=== PATIENT | female | born 1940 | race Caucasian/White ===

== ENCOUNTER 2017-06-20 16:45 | Inpatient (IN) | payer MEDICAID ==
[~2017-06-20] VITALS: Ht 157.5 cm; Wt 59.4 kg
[2017-06-20 17:40] LABS: BASOPHIL % 0.7 % (0-2)
[2017-06-20 17:44] LABS: PLATELET COUNT 122 x10^3mcL (130-400); RED CELL DISTRIBUTION WIDTH 14.6 % (11.5-14.5)
[2017-06-20 17:51] LABS: ALKALINE PHOSPHATASE 171 U/L (46-116); ALT/SGPT 15 U/L (14-59); AST/SGOT 20 U/L (15-37); BILIRUBIN TOTAL 0.29 mg/dL (0.20-1.00); CALCIUM 8.7 mg/dL (8.5-10.1); CARBON DIOXIDE 25.9 mmol/L (21-32); CHLORIDE SERUM 99 mmol/L (98-107); GLUCOSE SERUM 219 mg/dL (74-106); SODIUM SERUM 134 mmol/L (136-145); TOTAL PROTEIN, SERUM 7.4 g/dL (6.4-8.2)
[2017-06-20 17:55] LABS: POTASSIUM SERUM 5.6 mmol/L (3.5-5.1)
[2017-06-20] MEDS ORDERED: HYDRALAZINE HCL25 MG PO (18:40)
[2017-06-20] MEDS ORDERED: TOPROL XL100 MG PO (18:41)
[2017-06-20] MEDS ORDERED: PROMETHAZINE V118 M1 PO (18:41)
[2017-06-20] MEDS ORDERED: GLUCOPHAGE XR500 MG PO (18:41)
[2017-06-20 20:14] VITALS: BP 179/57
[2017-06-20] MEDS ORDERED: GOOD SENSE OMEP20 MG PO (20:24)
[2017-06-20 21:28] LABS: MAGNESIUM 2.5 mg/dL (1.8-2.4); PHOSPHOROUS 3.1 mg/dL (2.5-4.9)
[2017-06-20 21:36] LABS: T3 TOTAL 0.59 ng/mL
[2017-06-20 21:38] LABS: FREE T4 0.84 ng/dL (0.76-1.46); FREE THYROXINE INDEX 1.9 ug/dL (1.4-4.5); T4(THYROXINE) 5.1 ug/dL (4.7-13.3)
[2017-06-20] MEDS ORDERED: METOPROLOL TAR100 MG PO (21:39)
[2017-06-20 21:59] VITALS: BP 131/88
[2017-06-20 22:42] LABS: CALCIUM 8.3 mg/dL (8.5-10.1); CARBON DIOXIDE 29.4 mmol/L (21-32); CHLORIDE SERUM 102 mmol/L (98-107); GLUCOSE SERUM 129 mg/dL (74-106); POTASSIUM SERUM 4.7 mmol/L (3.5-5.1); SODIUM SERUM 138 mmol/L (136-145)
[2017-06-20 23:02] LABS: CREATININE SERUM 6.3 mg/dL (0.6-1.0)
[2017-06-21 05:16] LABS: BASOPHIL % 0.1 % (0-2)
[2017-06-21 05:17] LABS: PLATELET COUNT 120 x10^3mcL (130-400); RED CELL DISTRIBUTION WIDTH 14.9 % (11.5-14.5)
[2017-06-21 05:30] VITALS: BP 165/55
[2017-06-21 05:36] LABS: CALCIUM 8.7 mg/dL (8.5-10.1); CARBON DIOXIDE 27.4 mmol/L (21-32); CHLORIDE SERUM 100 mmol/L (98-107); GLUCOSE SERUM 300 mg/dL (74-106); MAGNESIUM 2.4 mg/dL (1.8-2.4); PHOSPHOROUS 4.4 mg/dL (2.5-4.9); POTASSIUM SERUM 4.7 mmol/L (3.5-5.1); SODIUM SERUM 138 mmol/L (136-145)
[2017-06-21 05:41] LABS: CREATININE SERUM 6.6 mg/dL (0.6-1.0)
[2017-06-21 10:00] VITALS: BP 114/60
[2017-06-21 14:20] VITALS: BP 112/64
[2017-06-21 21:50] VITALS: BP 111/42
[2017-06-22 05:29] VITALS: BP 159/60
[2017-06-22 07:03] LABS: CALCIUM 8.4 mg/dL (8.5-10.1); CARBON DIOXIDE 26.3 mmol/L (21-32); CHLORIDE SERUM 99 mmol/L (98-107); GLUCOSE SERUM 154 mg/dL (74-106); POTASSIUM SERUM 4.1 mmol/L (3.5-5.1); SODIUM SERUM 139 mmol/L (136-145); URIC ACID 3.3 mg/dL (2.6-6.0)
[2017-06-22 07:25] LABS: CREATININE SERUM 4.2 mg/dL (0.6-1.0)
[2017-06-22 14:37] VITALS: BP 144/51
[2017-06-22 16:07] VITALS: BP 86/58
[2017-06-22 16:47] VITALS: BP 122/54
[2017-06-22 16:49] VITALS: BP 122/54
== END 2017-06-22 17:19 | disposition home or self-care (01) | DRG 140 ==
LOC: ED 16:45 → DU 18:41
PROVIDERS: Emergency Medicine; Family Medicine; ADMIT Family Medicine
DX: J44.1 Chronic obstructive pulmonary disease with (acute) exacerbation (principal); N17.0 Acute kidney failure with tubular necrosis; E44.0 Moderate protein-calorie malnutrition; I12.0 Hypertensive chronic kidney disease with stage 5 chronic kidney disease or end stage renal disease; N18.6 End stage renal disease; D69.59 Other secondary thrombocytopenia; E78.5 Hyperlipidemia, unspecified; E11.65 Type 2 diabetes mellitus with hyperglycemia; D63.1 Anemia in chronic kidney disease; E11.51 Type 2 diabetes mellitus with diabetic peripheral angiopathy without gangrene; E11.21 Type 2 diabetes mellitus with diabetic nephropathy; E87.1 Hypo-osmolality and hyponatremia; E87.5 Hyperkalemia; E83.41 Hypermagnesemia; D64.9 Anemia, unspecified; Z99.2 Dependence on renal dialysis; Z79.4 Long term (current) use of insulin; Z89.411 Acquired absence of right great toe; Z79.84 Long term (current) use of oral hypoglycemic drugs
CPT/HCPCS: 36600; 82962; 83880; 84439; 94150; J1815; J2543; J2765; J2920; J2930; J3490; J7030; J7050; J7613; J7620; J7644; Q0092

== ENCOUNTER 2017-06-29 21:48 | Inpatient (IN) | payer MEDICAID ==
[~2017-06-29] VITALS: Ht 162.6 cm; Wt 63.5 kg
[~2017-06-29 21:48] MED LIST: GLUCOPHAGE XR500 MG PO; GOOD SENSE OMEP20 MG PO; HYDRALAZINE HCL25 MG PO; METOPROLOL TAR100 MG PO; PROMETHAZINE V118 M1 PO; TOPROL XL100 MG PO
[2017-06-29 23:16] LABS: ALKALINE PHOSPHATASE 103 U/L (46-116); ALT/SGPT 28 U/L (14-59); AST/SGOT 32 U/L (15-37); BILIRUBIN TOTAL 0.4 mg/dL (0.20-1.00); CALCIUM 8.2 mg/dL (8.5-10.1); CARBON DIOXIDE 20.7 mmol/L (21-32); CHLORIDE SERUM 102 mmol/L (98-107); GLUCOSE SERUM 156 mg/dL (74-106); POTASSIUM SERUM 4.1 mmol/L (3.5-5.1); SODIUM SERUM 137 mmol/L (136-145); TOTAL PROTEIN, SERUM 6.9 g/dL (6.4-8.2)
[2017-06-29 23:17] LABS: ALBUMIN 2.9 g/dL (3.4-5.0); CHOLESTEROL 116 mg/dL (<200)
[2017-06-29 23:18] LABS: CREATININE SERUM 5.8 mg/dL (0.6-1.0)
[2017-06-29 23:35] LABS: BASOPHIL % 0.5 % (0-2); PLATELET COUNT 164 x10^3mcL (130-400)
[2017-06-29 23:36] LABS: RED CELL DISTRIBUTION WIDTH 15.3 % (11.5-14.5)
[2017-06-30] VITALS (7 sets, daily range): BP systolic 128–148; BP diastolic 46–86; Ht 162.6 cm; Wt 63.5 kg
[2017-06-30 02:22] LABS: MAGNESIUM 2.3 mg/dL (1.8-2.4); PHOSPHOROUS 3.6 mg/dL (2.5-4.9)
[2017-07-01 05:50] VITALS: BP 159/72
[2017-07-01 06:35] LABS: BASOPHIL % 0.6 % (0-2); PLATELET COUNT 148 x10^3mcL (130-400)
[2017-07-01 06:58] LABS: CALCIUM 8.3 mg/dL (8.5-10.1); CHLORIDE SERUM 99 mmol/L (98-107); GLUCOSE SERUM 129 mg/dL (74-106); POTASSIUM SERUM 3.4 mmol/L (3.5-5.1); SODIUM SERUM 137 mmol/L (136-145)
[2017-07-01 08:04] LABS: CREATININE SERUM 4.3 mg/dL (0.6-1.0)
[2017-07-01 13:50] VITALS: BP 118/98
[2017-07-01 17:51] VITALS: BP 154/45
[2017-07-01 21:20] VITALS: BP 140/38
[2017-07-02 05:30] VITALS: BP 129/39
[2017-07-02] MEDS ORDERED: ZES5 PO (05:35)
[2017-07-02] MEDS ORDERED: ECO81 PO (05:35)
[2017-07-02] MEDS ORDERED: LIPI10 PO (05:35)
[2017-07-02] MEDS ORDERED: LOP50 PO (05:35)
[2017-07-02] MEDS ORDERED: APR10 PO (05:35)
[2017-07-02 06:12] LABS: CARBON DIOXIDE 28.7 mmol/L (21-32); CHLORIDE SERUM 100 mmol/L (98-107); GLUCOSE SERUM 130 mg/dL (74-106); POTASSIUM SERUM 3.8 mmol/L (3.5-5.1); SODIUM SERUM 138 mmol/L (136-145)
[2017-07-02 06:19] LABS: CREATININE SERUM 6.4 mg/dL (0.6-1.0)
== END 2017-07-02 09:00 | disposition home or self-care (01) | DRG 192 ==
LOC: ED 21:48 → DU 06-30 00:22
PROVIDERS: Internal Medicine Interventional Cardiology; Specialist; ADMIT Family Medicine
PROC: B2151ZZ Fluoroscopy of Left Heart using Low Osmolar Contrast (ICD-10-PCS; 2017-07-01)
PROC: B2111ZZ Fluoroscopy of Multiple Coronary Arteries using Low Osmolar Contrast (ICD-10-PCS; 2017-07-01)
PROC: 3E073KZ Introduction of Other Diagnostic Substance into Coronary Artery, Percutaneous Approach (ICD-10-PCS; 2017-07-01)
PROC: 4A023N7 Measurement of Cardiac Sampling and Pressure, Left Heart, Percutaneous Approach (ICD-10-PCS; principal; 2017-07-01 09:30)
DX: M94.0 Chondrocostal junction syndrome [Tietze] (principal); N17.0 Acute kidney failure with tubular necrosis; I50.43 Acute on chronic combined systolic (congestive) and diastolic (congestive) heart failure; E44.0 Moderate protein-calorie malnutrition; I13.2 Hypertensive heart and chronic kidney disease with heart failure and with stage 5 chronic kidney disease, or end stage renal disease; N18.6 End stage renal disease; E11.51 Type 2 diabetes mellitus with diabetic peripheral angiopathy without gangrene; E11.65 Type 2 diabetes mellitus with hyperglycemia; R91.1 Solitary pulmonary nodule; I25.10 Atherosclerotic heart disease of native coronary artery without angina pectoris; J44.9 Chronic obstructive pulmonary disease, unspecified; E83.51 Hypocalcemia; D63.1 Anemia in chronic kidney disease; Z99.2 Dependence on renal dialysis; Z89.411 Acquired absence of right great toe; Z68.24 Body mass index [BMI] 24.0-24.9, adult; Z79.84 Long term (current) use of oral hypoglycemic drugs
CPT/HCPCS: CLHCL; 82962; 83880; 94150; A4719; C1769; C1887; C1894; G0378; G0480; J1644; J2001; J2250; J3010; J3490; J7030; J7040; J7050; Q0092; Q9967

== ENCOUNTER 2019-01-02 21:06 | Inpatient (IN) | payer MEDICAID | END 2019-01-03 15:32 | disposition home or self-care (01) | LOC: ED 21:06 → DU 23:54 → ED 21:06 → DU 01-03 00:46 → ED 21:06 → DU 23:54 | DX: R07.9 Chest pain, unspecified (principal) ==

== ENCOUNTER 2019-03-16 17:52 | Emergency (ER) | payer OTHER ==
[~2019-03-16] VITALS: Ht 160 cm; Wt 62.6 kg
[~2019-03-16 17:52] MED LIST changes: +APR10 PO; +AZITHROMYCIN250 M1 PO; +CLONIDINE HCL0.1 MG PO; +ECO81 PO; +GLUCOTROL5 MG PO; +LIPI10 PO; +LOP50 PO; +PROMETHAZI6.25 MG/5 PO; +RENA-VITE RX1 TAB PO; +ZES5 PO
[2019-03-16 17:58] VITALS: Ht 160 cm; Wt 62.6 kg
[2019-03-16 20:17] VITALS: BP 189/78
== END 2019-03-16 20:17 | disposition home or self-care (01) ==
LOC: ED 17:52
DX: S32.000A Wedge compression fracture of unspecified lumbar vertebra, initial encounter for closed fracture (principal); S09.8XXA Other specified injuries of head, initial encounter; I10 Essential (primary) hypertension; E11.9 Type 2 diabetes mellitus without complications; Z98.890 Other specified postprocedural states; W07.XXXA Fall from chair, initial encounter; Y93.89 Activity, other specified; Y92.89 Other specified places as the place of occurrence of the external cause; Y99.8 Other external cause status
CPT/HCPCS: 72072

== ENCOUNTER 2020-11-19 15:56 | Emergency (ER) | payer MEDICAID ==
[~2020-11-19] VITALS: Ht 154.9 cm; Wt 53.5 kg
[2020-11-19 16:06] VITALS: Ht 154.9 cm; Wt 53.5 kg
[2020-11-19 19:43] VITALS: BP 183/68
== END 2020-11-19 19:43 | disposition home or self-care (01) ==
LOC: ED 15:56
DX: M86.8X7 Other osteomyelitis, ankle and foot (principal); I10 Essential (primary) hypertension; E11.9 Type 2 diabetes mellitus without complications